=== PATIENT | male | born 1975 | race African-American/Black ===

== ENCOUNTER 2016-06-02 22:59 | Inpatient (IN) | payer OTHER ==
--- NOTE | ~2016-06-02 | DS ---
Unit #: [id number] #: [id number] Patient: PABLO HERNANDES [id number] [facility] [address] [place] [address] [id number] I MR#: [id number] NAME: PABLO HERNANDES ROOM: [facility] Age: 41 Sex: M Admission Date: 06/02/2016 : 1975 Discharge Date: 06/09/2016 Attending Physician: Aron Wilks M.D. Primary Care Physician: Shannan José DISCHARGE SUMMARY REASON FOR ADMISSION Mr. Hernandes is a 41-year-old man who came in reporting polysubstance abuse that had initiated a psychosis. He also reported suicidal ideation and could not contract for safety. He was admitted for stabilization. HOSPITAL COURSE The patient was admitted and placed on polysubstance detox withdrawal. He was started on Celexa 20 mg daily for depression and Risperdal 1 mg at bedtime for mood stability. These were effective and he showed minimal psychosis after admission. His mood improved and he was able to participate in psychotherapy groups and activities. On the date of discharge, he contracted for safety in the outpatient setting. DISCHARGE DIAGNOSES AXIS I: Posttraumatic stress disorder, chronic; cocaine abuse; cannabis abuse. AXIS II: No diagnosis. AXIS III: Traumatic brain injury, history of migraines. AXIS IV: AXIS V: DISCHARGE INSTRUCTIONS Follow up with primary care physician and with [facility]. DISCHARGE MEDICATIONS Celexa 20 mg daily for depression, Risperdal 1 mg at bedtime for psychosis, Proventil inhaler 2 puffs every 4 hours as needed for shortness of air. CONDITION AT DISCHARGE Improved. PROGNOSIS Good. DIET AND ACTIVITY Ad brittnee. Dictated by... Aron Wilks M.D. Unit #: [id number] #: [id number] Patient: PABLO HERNANDES MRH/modl TD: 07/21/2016 00:27 JOB #: [id number] DISCHARGE SUMMARY Page 1 of 1 X Aron Wilks MD DISCHARGE SUMMARY
--- NOTE | ~2016-06-02 | HP ---
Unit #: [id number] #: [id number] Patient: PABLO LOMBARDO [id number] [facility] [address] [place] [address] [id number] I MR#: [id number] NAME: PABLO LOMBARDO ROOM: P254 Age: 41 Sex: M Admission Date: 06/02/2016 : 1975 Attending Physician: Aron Wilks M.D. Admitting Physician: Aron Wilks M.D. Primary Care Physician: Shannan José HISTORY AND PHYSICAL HISTORY OF PRESENT ILLNESS Pablo is a 41 year old admitted to [address] [place] [address] with depression and verbalizing wanting to hurt himself. PAST MEDICAL HISTORY 1. History of TBI. 2. History of migraine headaches. PAST SURGICAL HISTORY Nothing reported. ALLERGIES No known drug allergies. SOCIAL HISTORY Smokes at least 1/2 pack per day. Drinks alcohol at least 2 times a week. Admits to using marijuana on a rare occasion and has a history of other illicit substance abuse to include heroin. His last use was 2011. FAMILY HISTORY Medically noncontributory. REVIEW OF SYSTEMS CONSTITUTIONAL: No fever or chills. HEENT: Denies any sore throat, ear pain or runny nose. CARDIOVASCULAR: Denies chest pain, irregular heart rhythm or palpitations. CHEST: Denies shortness of breath or cough. No hemoptysis. GASTROINTESTINAL: Denies nausea, vomiting, diarrhea or chronic constipation. ENDOCRINE: Denies history of increased thirst or urination. No recent significant weight loss or gain. GENITOURINARY: Denies dysuria, frequency, or hematuria. SKIN: Denies any rashes. HEMATOLOGIC: Denies history of increased bleeding or bruising. MUSCULOSKELETAL: Denies any hot, swollen joints. No generalized muscle pain. NEUROLOGIC: Denies problems with vision or speech. No frequent, severe headaches. No numbness, tingling or weakness in any extremities. Denies loss of bladder or bowel control. CURRENT MEDICATIONS 1. Celexa 20 mg daily. 2. Nicotine patch 21 mg daily. Unit #: [id number] #: [id number] Patient: PABLO LOMBARDO 3. Milk of Magnesia p.r.n. 4. Maalox p.r.n. 5. Tylenol p.r.n. PHYSICAL EXAMINATION GENERAL: Alert, well-nourished, no apparent distress. VITAL SIGNS: Blood pressure 144/86, heart rate 80, respirations 16, temperature 98.6. WEIGHT: 185. HEIGHT: 5 feet 9 inches. SKIN: Warm and dry without rash or lesion. HEENT: Normocephalic. TMs not viewed. Oral and nasal passages clear. Conjunctivae clear. PERRLA. EOMs intact. NECK: Supple without lymphadenopathy or thyromegaly. HEART: Regular rate and rhythm without murmur. LUNGS: Clear. ABDOMEN: Soft, nontender. : Not done. EXTREMITIES: No evidence of cyanosis, clubbing or edema. Moves all without focal deficit. NEUROLOGICAL: Grossly within normal limits. Cranial Nerves: II: Visual escoto are intact. III, IV AND : Extraocular movements are intact. Pupils are equal, round and reactive to light. V: Facial sensation is grossly normal. VII: Facial movements and expression are normal. VIII: Auditory acuity grossly intact. IX, X: Uvula is midline. Phonation is normal. XI: Patient shrugs shoulders and turns head normally. XII: Tongue protrudes in the midline. Sensory and Motor Function: Sensory and motor sensation is grossly normal. Motor: moves all extremities well. Coordination: Gait is normal. Deep Tendon Reflexes: Intact. IMPRESSION Psychiatric admission. RECOMMENDATIONS PSYCHIATRIC: Per psychiatrist. MEDICAL: See no contraindications to participate in facility's activities. MEDICAL PROGNOSIS Good. MEDICAL CONDITION Stable. Dictated by... Zoila Floyd P.A.-C. for Michael Leslie/jannette TD: 06/03/2016 20:45 JOB #: [id number] Unit #: [id number] #: [id number] Patient: PABLO LOMBARDO HISTORY AND PHYSICAL Page 1 of 1 X Zoila Floyd HISTORY AND PHYSICAL
--- NOTE | ~2016-06-02 | CO ---
Unit #: [id number] #: [id number] Patient: PABLO LOMBARDO [id number] [place] [address] [id number] I MR#: [id number] NAME: PABLO LOMBARDO ROOM: [facility] Age: 41 Sex: M Admission Date: 06/02/2016 : 1975 Attending Physician: Aron Wilks M.D. Primary Care Physician: Shannan José Consultation Date: 06/03/2016 CONSULTATION REPORT SUBJECTIVE Pablo is a 41-year-old who has complained of a cough productive of small to moderate amounts of dark yellow sputum. He denies any increased shortness of breath, but he has had some wheezing. There have been no recorded increased temperatures. OBJECTIVE GENERAL: Alert, well nourished, in no apparent distress. VITAL SIGNS: Blood pressure 144/86, heart rate 82, respirations 16, T-max 99. HEENT: Normocephalic. TMs shiny bilaterally. Oral and nasal passages clear. NECK: Supple without lymphadenopathy. CHEST: Soft wheezes that clear with cough. Small amounts of dark yellow sputum noted. ASSESSMENT Upper respiratory infection. PLAN Keflex 500 mg t.i.d. x7 days, albuterol inhaler 2 puffs q.4 hours p.r.n. Dictated by... Zoila Floyd POllieA.-[place]. for Michael Leslie/alisa TD: 06/06/2016 02:32 JOB #: [id number] CONSULTATION REPORT Page 1 of 1 X Zoila Floyd CONSULTATION REPORT
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
[2016-06-03 09:36] LABS: BASOPHIL% 0.5 % (0-2.5); EOSINOPHIL% 0.8 % (0.0-7.0); HEMATOCRIT 43.8 % (38.0-50.0); HEMOGLOBIN 14.1 gm/dL (13.0-16.0); LYMPHOCYTE# 0.8 X10e3 (1.0-3.5); LYMPHOCYTE% 12.2 % (17.0-45.0); MEAN CELL VOLUME 90.8 FL (83-96); MEAN CORPUSCULAR HEMOGLOBIN 29.1 PG (28-34); MEAN CORPUSCULAR HGB CONC 32.1 g/dL (30-36); MONOCYTE# 0.3 X10e3 (0-1.0); MONOCYTE% 5.4 % (3.0-12.0); NEUTROPHIL# 5.1 X10e3 (1.5-7.1); NEUTROPHIL% 81.1 % (40-75); PLATELET COUNT 318 X10e3 (140-420); RED BLOOD COUNT 4.83 X10e (3.90-5.60); RED CELL DISTRIBUTION WIDTH 14.3 % (11.0-15.5); WHITE BLOOD COUNT 6.3 X10e3 (4.0-10.5)
[2016-06-03 09:38] LABS: DIFF IND NO
[2016-06-03 09:40] LABS: ALBUMIN SERUM 3.6 g/dL (3.5-5.0); BUN/CREATININE RATIO 9.09; CREATININE SERUM 1.1 mg/dL (0.6-1.4); GLOM FILT RATE Estimated 96.8 mL/min (>60); POTASSIUM 3.8 mmol/L (3.5-5.1); PROTEIN TOTAL SERUM 6.8 g/dL (6.0-8.3)
[2016-06-03 09:42] LABS: URINE APPEARANCE CLEAR; URINE BILIRUBIN NEG (NEG); URINE BLOOD NEG (NEG); URINE COLOR YELLOW; URINE GLUCOSE NEG (NEG); URINE KETONE TRACE (NEG); URINE LEUKOCYTE ESTERASE NEG (NEG); URINE NITRATE NEG (NEG); URINE PROTEIN NEG (NEG); URINE SPECIFIC GRAVITY 1.024 (1.003-1.035)
[2016-06-03 10:16] LABS: AMPHETAMINE NEG (NEG); BARBITURATES NEG (NEG); BENZODIAZEPINES NEG (NEG); COCAINE POS (NEG); MARIJUANA POS (NEG); OPIATES NEG (NEG); TRICYCLIC ANTIDEPRESSANTS NEG (NEG); U METHADONE NEG (NEG)
== END 2016-06-09 15:25 | disposition home or self-care (01) | DRG 882 ==
LOC: P2L 22:59
PROVIDERS: Psychiatry & Neurology Psychiatry
DX: F43.12 Post-traumatic stress disorder, chronic (principal); R45.851 Suicidal ideations; F14.10 Cocaine abuse, uncomplicated; F12.10 Cannabis abuse, uncomplicated; Z87.820 Personal history of traumatic brain injury; J06.9 Acute upper respiratory infection, unspecified; F17.210 Nicotine dependence, cigarettes, uncomplicated
CPT/HCPCS: 80053; 80307; 81003; 85025